=== PATIENT | male | born 1965 | race Caucasian/White ===

== ENCOUNTER 2023-06-10 13:31 | Outpatient (CLI) | payer OTHER, SELFPAY ==
--- NOTE | 2023-06-10 13:45 | MR_ITS ---
[address] [address] Phone:?[phone] Fax:?[phone] Referring Physician Information: Kasia Garnett [address] [facility] [address] Phone:?[phone] Fax:?[phone] Patient:Grady Noel D.O.B:?1965 Sex:?Male Phone:?[phone] [facility] MRN:?[id number] Exam Date:?06/10/2023 EXAM: MRI EXAMINATION OF THE LEFT KNEE CLINICAL INFORMATION: Left knee pain. History of injury. History of surgery. Evaluate possible loose body. TECHNICAL INFORMATION: Coronal PD and STIR. Axial PD and T2 fat saturation. Sagittal PD and PD fat saturation images acquired. No prior studies for comparison. INTERPRETATION: Bones: Metal susceptibility artifact arising from surgical screws involving the tibial plateau. There is a chronic fracture deformity identified involving the lateral tibial plateau. Localized mild subchondral cystic change involves the patella. No occult fracture or AVN. No other abnormal bone marrow edema pattern is identified. Ligaments and tendons: The medial collateral ligament is intact, without acute sprain or tear. The iliotibial band, fibular collateral ligament, biceps femoris tendon and popliteus tendon all are intact. The anterior cruciate ligament is intact without acute sprain or tear. The posterior cruciate ligament is intact. Extensor Mechanism: The patellar and quadriceps tendons are intact. The medial and lateral retinacula are intact. Knee Joint: There is a small knee joint effusion. No discrete popliteal cyst. Series 6 image 18 as well as series 5 image 14 appear to demonstrate a slender ovoid 1.4 x 1.4 cm loose body at the inferior patellofemoral compartment. Medial Compartment: There is horizontal signal through the posterior medial meniscus. No convincing surface extension as tear. No displaced flap fragment or parameniscal cyst. 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 No other significant changes of chondromalacia. Lateral Compartment: Previously described chronic fracture deformity of the lateral tibial plateau. There is a 2.6 x 2.6 cm segment of grade 3 and IV chondromalacia involving the weightbearing surface of the lateral tibial plateau. Additional grade 3 to IV chondromalacia involves the mid to medial surface of the lateral femoral condyle. There is marked truncation involving the body of the lateral meniscus. Complex tearing involves the anterolateral meniscus. Thickened and irregular tearing involves the posterior horn. No displaced flap fragment or parameniscal cyst. Patellofemoral articulation: There is a 1.4 x 2 cm segment of grade 3 to IV chondromalacia extending inferiorly from the midportion of the lateral patellar facet. No other significant chondromalacia. CONCLUSION: 1. There is a small knee joint effusion. Appearance of a 1.4 cm slender ovoid loose body within the inferior patellofemoral joint. 2. Residua of a chronic fracture deformity and surgical change involving the lateral tibial plateau. 3. 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 4. Marked truncation of the body of the lateral meniscus. Complex tearing through the anterior horn with additional thickening, irregular tearing involving the posterior horn. 5. No evidence for a medial meniscus tear. 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 6. There is a moderately large segment of grade III to IV chondromalacia of the lateral patellar facet. KES Electronically signed on 06/11/2023 7:33:00 AM by Wan Weems M.D.
== END 2023-06-10 13:32 | disposition home or self-care (01) ==
LOC: MRI 13:32
PROVIDERS: Visit Provider Physician Assistant
DX: M25.562 Pain in left knee (principal); M25.462 Effusion, left knee; M94.262 Chondromalacia, left knee; S83.282A Other tear of lateral meniscus, current injury, left knee, initial encounter; M22.42 Chondromalacia patellae, left knee
CPT/HCPCS: 73721